=== PATIENT | female | born 1965 | race Caucasian/White ===

== ENCOUNTER → 2018-10-28 | Outpatient (CLI) | payer OTHER, SELFPAY ==
[2018-08-05 09:44] VITALS: BMI 21.6
--- NOTE | 2018-10-28 12:57 | BI_ITS ---
MAMMOGRAPHY - BILATERAL SCREENING REASON FOR EXAM: Female, 53 years old. Routine annual screening examination. PERTINENT HISTORY: Non-contributory. TECHNIQUE: Digital bilateral breast nabeel (3D mammographic acquisition) in the CC and MLO projections. 2-D mediolateral oblique (MLO) and craniocaudad (CC) views of both breasts were obtained. CAD: Full Field Digital Mammography with Computer Added Detection was performed. COMPARISON: Comparison is made with prior outside examination dated January 08, 2016. FINDINGS: Breast Composition: The breasts are heterogeneously dense, which may obscure small masses. There are no dominant masses or suspicious calcifications. The previously seen well-defined nodular density in the central portion of the left breast has decreased in size. It presently measures 3 mm x 4 mm. This most likely represents a small cyst. Stable small bilateral axillary lymph nodes. No other significant abnormalities are identified. BI/SCREEN MAMM (CAD) W/NABEEL BILAT IMPRESSION: Stable bilateral screening mammogram. Yearly follow-up mammogram recommended. (A) ASSESSMENT CATEGORY: BIRADS Category 2: Benign. A letter regarding these results will be sent to the patient by the facility within 30 days. Approximately 10% of breast cancers are not detected by mammography. A normal mammogram should not delay biopsy of a clinically suspicious abnormality. [id number] Electronically Signed: Gaetano Ramirez, at 13:58 EDT , Service support ,
--- NOTE | 2018-10-28 12:57 | US_ITS ---
STUDY: ULTRASOUND OF THE FEMALE PELVIS - COMPLETE REASON FOR EXAM: Female, 53 years old. Adnexal fullness. LMP: Unknown. TECHNIQUE: Transabdominal and Transvaginal, the latter used to optimize detail TECHNICAL QUALITY: Adequate. COMPARISON: None. FINDINGS: The uterus is anteverted and is in a midline position. The uterus measures 8.05 x 4.07 x 7.16 cm. There is a complicated Nabothian cysts of the cervix. One of these was 8 x 8 x 7 mm while the other is 9 x 9 x 6 mm. The uterine texture is heterogeneous, and the endometrium is not well-defined. Heterogeneous 5.3 x 3.9 x 4.2 cm mass consistent with a fibroid occupies much of the uterine fundus. Adjacent to this is a 3.3 x 3.2 x 2.9 cm heterogeneous lesion suggesting a second fibroid. I.U.D. - The patient does not have an I.U.D. The right ovary is non-visualized. There is no visualized right adnexal mass or complex lesion. There is normal arterial and normal venous vascularity. The left ovary is non-visualized. There is no visualized left adnexal mass or complex lesion. There is normal arterial and normal venous vascularity. There is minimal fluid in the cul-de-sac. The pre void volume of the bladder was 88.55 ml. IMPRESSION: 1. Limited ultrasound of the female pelvis. Uterine texture is notably heterogeneous, and the endometrium is not well-defined. Two heterogeneous masses consistent with fibroids are suggested in the upper body/fundus of the uterus. 2. Ovaries are not visualized. 3. One might consider additional pelvic imaging with MRI. Pending Final Proof Editing STUDY: ULTRASOUND OF THE FEMALE PELVIS - COMPLETE REASON FOR EXAM: Female, 53 years old. Adnexal fullness. LMP: Unknown. TECHNIQUE: Transabdominal and Transvaginal, the latter used to optimize detail TECHNICAL QUALITY: Adequate. COMPARISON: None. FINDINGS: The uterus is anteverted and is in a midline position. The uterus measures 8.05 x 4.07 x 7.16 cm. There is a complicated Nabothian cysts of the cervix. One of these was 8 x 8 x 7 mm while the other is 9 x 9 x 6 mm. The uterine texture is heterogeneous, and the endometrium is not well-defined. Heterogeneous 5.3 x 3.9 x 4.2 cm mass consistent with a fibroid occupies much of the uterine fundus. Adjacent to this is a 3.3 x 3.2 x 2.9 cm heterogeneous lesion suggesting a second fibroid. I.U.D. - The patient does not have an I.U.D. The right ovary is non-visualized. There is no visualized right adnexal mass or complex lesion. There is normal arterial and normal venous vascularity. The left ovary is non-visualized. There is no visualized left adnexal mass or complex lesion. There is normal arterial and normal venous vascularity. There is minimal fluid in the cul-de-sac. The pre void volume of the bladder was 88.55 ml. US/Transvaginal Non-
== END | disposition home or self-care (01) ==
LOC: OPUS 12:56
PROVIDERS: Family Provider Internal Medicine Infectious Disease; PCP Internal Medicine Infectious Disease; Referring Provider Nurse Practitioner Women's Health; Visit Provider Nurse Practitioner Women's Health
DX: Z12.31 Encounter for screening mammogram for malignant neoplasm of breast (principal); N94.9 Unspecified condition associated with female genital organs and menstrual cycle
CPT/HCPCS: 76830; 76856; 77063; 77067

== ENCOUNTER → 2020-03-21 07:17 | Outpatient (CLI) | payer OTHER, SELFPAY ==
[2018-08-05 09:44] VITALS: BMI 21.6
--- NOTE | 2020-03-21 12:50 | ECHOCS_ITS ---
Reason For Study: MVR Procedure This was a 2D Doppler, Color Flow transthoracic echocardiogram. The study was technically difficult. Contrast injection was performed. Exam performed in department. Left Ventricle Normal LV size. Left ventricular systolic function is normal. The estimated ejection fraction is 55 %. Normal diastology for age. No regional wall motion abnormalities noted. Right Ventricle Normal RV size. Normal systolic function. Atria Normal left atrium. Normal right atrium. Mitral Valve Bileaflet diffuse mitral valve thickening. Mild focal mitral valve calcification of the posterior leaflet. No mitral valve insufficiency. Status post mitral valve repair with annuloplasty ring. Pulmonic Valve Normal pulmonic valve. Mild (1+) pulmonic valve insufficiency. Pericardium/Pleural No pericardial effusion. Medication 22 gauge I.V. with prn adaptor inserted into right arm. Diluted definity 4.0ml given slow IV push to enhance endocardial definition. MMode/2D Measurements & Calculations LVIDd: 4.5 cm IVSd: 0.79 cm LVOT diam: 2.0 cm LVIDs: 3.1 cm LVPWd: 0.88 cm LVOT area: 3.0 cm2 RVDd: 3.9 cm FS: 31.2 % Ao root diam: 3.4 cm LAV(MOD-bp): 46.4 ml LA A4 area: 18.0 cm2 LAV(MOD-bp) Indexed: 26.7 ml/m2 LAV(MOD-sp2): 42.4 ml LAV(MOD-sp4): 46.8 ml LA dimension(2D): 4.0 cm RA A4 area: 16.0 cm2 Time Measurements MV dec time: 0.28 sec Doppler Measurements & Calculations MV E max luther: 117.0 cm/sec Lat Peak E' Luther: 12.3 cm/sec Med Peak E' Luther: 5.9 cm/sec MV A max luthre: 101.0 cm/sec E/E' lat: 9.5 E/E' med: 19.7 MV E/A: 1.2 MV V2 max: 134.9 cm/sec Ao V2 max: 113.1 cm/sec LV V1 max: 98.0 cm/sec MV max P.3 mmHg Ao max P.1 mmHg LV V1 max P.8 mmHg MV V2 mean: 81.6 cm/sec MV mean P.9 mmHg MARCK(V,D): 2.6 cm2 MV V2 VTI: 40.6 cm PA V2 max: 92.8 cm/sec TR max luther: 226.9 cm/sec MV P1/2t-pr_phl: 112.6 msec TR max P.6 mmHg Interpretation Summary Normal LV size. Left ventricular systolic function is normal. The estimated ejection fraction is 55 %. Mild focal mitral valve calcification of the posterior leaflet. Contrast injection was performed. Compared to previous study, the left ventricular systolic function is the same.. Ordering Physician: Filipe Daniel Referring Physician: TIAN CALLOWAY Performed By: Natalia Crooks, LYNSEY, RVT
== END ==
PROVIDERS: PCP Internal Medicine Infectious Disease; Visit Provider Internal Medicine Cardiovascular Disease
DX: Z98.890 Other specified postprocedural states (principal)
CPT/HCPCS: 93306; Q9957; A4216; C8929

== ENCOUNTER → 2020-10-02 15:33 | Outpatient (CLI) | payer OTHER, SELFPAY ==
[2018-08-05 09:44] VITALS: BMI 21.6
--- NOTE | 2020-10-02 15:35 | BI_ITS ---
MAMMOGRAPHY - BILATERAL SCREENING REASON FOR EXAM: Female, 55 years old. Routine annual screening examination. PERTINENT HISTORY: Screening TECHNIQUE: Digital bilateral breast nabeel (3D mammographic acquisition) in the CC and MLO projections. 2-D mediolateral oblique (MLO) and craniocaudad (CC) views of both breasts were obtained. CAD: Full Field Digital Mammography with Computer Added Detection was performed. COMPARISON: Previous mammogram obtained on 10/28/2018 FINDINGS: Breast Composition: Heterogeneous There are no dominant masses or suspicious calcifications. No other significant abnormalities are identified. BI/SCRN MAMM (CAD)W/NABEEL BILAT IMPRESSION: Stable bilateral screening mammogram. Yearly follow-up mammogram recommended. (A) ASSESSMENT CATEGORY: BIRADS Category 1: Negative. A letter regarding these results will be sent to the patient by the facility within 30 days. Approximately 10% of breast cancers are not detected by mammography. A normal mammogram should not delay biopsy of a clinically suspicious abnormality. [id number] Electronically Signed: Juventino Wood DO at 10:59 EDT Tel , Service support ,
== END ==
PROVIDERS: Referring Provider Obstetrics & Gynecology; Visit Provider Obstetrics & Gynecology
DX: Z12.31 Encounter for screening mammogram for malignant neoplasm of breast (principal)
CPT/HCPCS: 77063; 77067

== ENCOUNTER → 2020-10-31 | Outpatient (CLI) | payer OTHER, SELFPAY ==
[2020-11-03 07:26] LABS: HPV APTIMA, High Risk Negative (Negative)
== END | disposition home or self-care (01) ==
PROVIDERS: Referring Provider Nurse Practitioner Women's Health; Visit Provider Nurse Practitioner Women's Health
DX: Z12.4 Encounter for screening for malignant neoplasm of cervix (principal)
CPT/HCPCS: 87624; 88175; G0145

== ENCOUNTER → 2022-04-17 | Outpatient (CLI) | payer OTHER, SELFPAY ==
--- NOTE | 2022-04-17 10:53 | ECHOD_ITS ---
Reason For Study: MV Repair Procedure This was a 2D Doppler, Color Flow transthoracic echocardiogram. The study was technically difficult. Exam performed in department. Left Ventricle Normal LV size. Left ventricular systolic function is normal. The estimated ejection fraction is 60 %. No regional wall motion abnormalities noted. Right Ventricle Normal RV size. Normal systolic function. Atria Normal left atrium. Normal right atrium. Mitral Valve Bileaflet diffuse mitral valve thickening. There is Mild focal posterior mitral annular calcification. Trivial eccentric mitral valve insufficiency. Status post mitral valve repair with annuloplasty ring. Tricuspid Valve Normal tricuspid valve. Mild tricuspid valve insufficiency. Pulmonary artery systolic pressure is 30 mmHg. Aortic Valve Trisinus/trileaflet aortic valve. Pulmonic Valve Normal pulmonic valve. Great Vessels Normal aortic root. The pulmonary artery is normal size. Normal inferior vena cava. Pericardium/Pleural No pericardial effusion. Medication 22 gauge I.V. with prn adaptor inserted into left arm. Performed a rapid injection of agitated mix of 9 cc saline and 1cc air to assess for atrial septal defect. Diluted definity 2ml given slow IV push to enhance endocardial definition. MMode/2D Measurements & Calculations LVIDd: 4.1 cm IVSd: 1.2 cm Ao root diam: 3.1 cm LVIDs: 2.7 cm LVPWd: 1.1 cm RVDd: 3.5 cm FS: 34.1 % LAV(MOD-bp): 46.7 ml LVAd ap4: 26.0 cm2 LVAd ap2: 27.8 cm2 LAV(MOD-bp) Indexed: 26.6 ml/m2 LVLd ap4: 7.6 cm LVLd ap2: 7.8 cm LAV(MOD-sp2): 40.2 ml EDV(MOD-sp4): 72.3 ml EDV(MOD-sp2): 82.5 ml LAV(MOD-sp4): 47.5 ml EDV(sp4-el): 75.4 ml EDV(sp2-el): 83.5 ml LVAs ap4: 16.1 cm2 LVAs ap2: 16.8 cm2 LVLs ap4: 6.6 cm LVLs ap2: 7.0 cm ESV(MOD-sp4): 32.6 ml ESV(MOD-sp2): 33.6 ml ESV(sp4-el): 33.4 ml ESV(sp2-el): 34.1 ml EF(MOD-sp4): 54.9 % EF(MOD-sp2): 59.3 % EF(sp4-el): 55.7 % SV(MOD-sp4): 39.7 ml SV(MOD-sp2): 48.9 ml SV(sp4-el): 42.0 ml LA A4 area: 17.3 cm2 LA dimension(2D): 4.3 cm RA A4 area: 13.6 cm2 Time Measurements MV dec time: 0.22 sec Doppler Measurements & Calculations MV E max luther: 106.1 cm/sec Lat Peak E' Luther: 13.4 cm/sec Med Peak E' Luther: 7.9 cm/sec MV A max luther: 96.2 cm/sec E/E' lat: 7.9 E/E' med: 13.4 MV E/A: 1.1 MV V2 max: 131.0 cm/sec MV P1/2t max luther: 127.2 cm/sec Ao V2 max: 120.2 cm/sec MV max P.9 mmHg MV P1/2t: 74.9 msec Ao max P.8 mmHg MV V2 mean: 86.4 cm/sec MV mean P.3 mmHg MV dec slope: 497.5 cm/sec2 MV V2 VTI: 32.6 cm MVA(P1/2t): 2.9 cm2 LV V1 max: 100.6 cm/sec PA V2 max: 99.2 cm/sec TR max luther: 254.0 cm/sec LV V1 max P.0 mmHg TR max P.8 mmHg ECHO/Echo Complete W/ Contrast Interpretation Summary Status post mitral valve repair with annuloplasty ring. Normal LV size. Left ventricular systolic function is normal. The estimated ejection fraction is 60 %. There is Mild focal posterior mitral annular calcification. Pulmonary artery systolic pressure is 30 mmHg. Ordering Physician: Filipe Daniel Referring Physician: Filipe Daniel Performed By: Yoselin Mathews RDCS
== END | disposition home or self-care (01) ==
LOC: CVS 10:51
PROVIDERS: Referring Provider Internal Medicine Cardiovascular Disease; Visit Provider Internal Medicine Cardiovascular Disease
DX: Z98.890 Other specified postprocedural states (principal)
CPT/HCPCS: 93306; Q9957; A4216; C8929

== ENCOUNTER → 2024-12-25 | Outpatient (CLI) | payer OTHER, SELFPAY ==
[2024-12-25 08:30] LABS: Hematocrit 38.6 % (37-47); Hemoglobin 13.6 g/dL (12.0-15.0); Immature Granulocytes Count 0.000 X10^3/uL (0.0-0.0); Mean Corp Hgb Conc 35.2 g/dL (32-36); Mean Corpuscular Volume 92.3 fL (81-99); Mean Platelet Vol. 10.6 fl (6.2-12.0); NRBC Flagged by Analyzer 0 % (0-5); Platelet Count 289 K/mm3 (150-450); RBC Distribution Width CV 11.6 % (11.6-14.6); RBC Distribution Width SD 39.3 fl (35.1-43.9); Red Blood Count 4.18 M/mm3 (4.2-5.4); White Blood Count 3.6 K/mm3 (4.4-11.0)
[2024-12-25 09:10] LABS: AST(SGOT) 24 U/L (<=31); Alanine Aminotransfer ALT/SGPT 26 U/L (<=34); Albumin, Serum 4.3 g/dL (3.5-5.0); Alkaline Phosphatase 85 U/L (35-104); Anion Gap 10 (5-15); BUN 13 mg/dL (4-19); BUN/Creat Ratio 18.7 RATIO (10-20); Calcium,Total 9.3 mg/dL (7.6-11.0); Carbon Dioxide 23.7 mmol/L (21.0-32.0); Chloride 106 mmol/L (98-108); Cholesterol 149 mg/dL (<=200); Globulin 3.0 g/dL (2.2-4.2); Glucose 100 mg/dL (70-99); Low Density Lipoprotein Calc. 70 mg/dL; Potassium 4.3 mmol/L (3.3-5.1); Triglycerides 117 mg/dL; Very Low Density Lipoprotein 23 mg/dL (5-40); Vitamin B12 690 pg/mL (180-914); Vitamin D,25 Hydroxy 24.7 ng/mL (30-100); cholesterol:hdl ratio screen 2.57
== END | disposition home or self-care (01) ==
LOC: LAB 07:57
PROVIDERS: PCP Internal Medicine; Referring Provider Internal Medicine; Visit Provider Internal Medicine
DX: Z00.00 Encounter for general adult medical examination without abnormal findings (principal); R73.9 Hyperglycemia, unspecified; E55.9 Vitamin D deficiency, unspecified; E53.8 Deficiency of other specified B group vitamins; Z13.220 Encounter for screening for lipoid disorders
CPT/HCPCS: 36415; 80053; 80061; 82306; 82607; 83036; 84443; 85025